=== PATIENT | male | born 1980 | race Two or more races ===

== ENCOUNTER 2018-06-05 09:42 | Inpatient (IN) | payer SELFPAY ==
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
[2018-06-05 10:40] LABS: ABSOLUTE BASOPHILS # (AUTO) 0.1 10^3/uL (0.0-0.2); ABSOLUTE EOSINOPHILS # (AUTO) 0.1 10^3/uL (0.0-0.6); ABSOLUTE LYMPHOCYTES (AUTO) 2.2 10^3/uL (0.5-4.7); ABSOLUTE MONOCYTES (AUTO) 0.6 10^3/uL (0.1-1.4); ABSOLUTE NEUT (AUTO) 10.7 10^3/uL (1.7-8.2); BASOPHILS % (AUTO) 0.8 % (0-2); EOSINOPHILS % (AUTO) 0.9 % (0-6); HEMATOCRIT 44.1 % (37.9-51.0); HEMOGLOBIN 15.1 g/dL (13.5-17.0); LYMPHOCYTES % (AUTO) 15.8 % (13-45); MEAN CORPUSCULAR HEMOGLOBIN 33.5 pg (27.0-33.4); MEAN CORPUSCULAR HGB CONC 34.3 g/dL (32.0-36.0); MEAN CORPUSCULAR VOLUME 98 fl (80-97); MONOCYTES % (AUTO) 4.2 % (3-13); PLATELET COUNT 252 10^3/uL (150-450); RED BLOOD COUNT 4.51 10^6/uL (4.35-5.55); RED CELL DISTRIBUTION WIDTH 13.6 % (11.5-14.0); SEGMENTED NEUTROPHILS % (AUTO) 78.3 % (42-78); TOTAL CELLS COUNTED % (AUTO) 100 %; WHITE BLOOD COUNT 13.6 10^3/uL (4.0-10.5)
[2018-06-05 10:48] LABS: INTERNATIONAL RATION (INR) 1.23; PROTHROMBIN TIME 16.1 SEC (11.4-15.4)
[2018-06-05 11:00] LABS: ALANINE AMINOTRANSFERASE 18 U/L (21-72); ALBUMIN 3.9 g/dL (3.5-5.0); ALKALINE PHOSPHATASE 99 U/L (38-126); ANION GAP 10 (5-19); ASPARTATE AMINO TRANSFERASE 42 U/L (17-59); BILIRUBIN,DIRECT 0.4 mg/dL (0.0-0.4); BILIRUBIN,TOTAL 0.9 mg/dL (0.2-1.3); BLOOD UREA NITROGEN 6 mg/dL (7-20); CALCIUM 8.9 mg/dL (8.4-10.2); CARBON DIOXIDE 25 mmol/L (22-30); CHLORIDE 102 mmol/L (98-107); CREATINE KINASE 116 U/L (55-170); GLUCOSE 136 mg/dL (75-110); POTASSIUM 4.6 mmol/L (3.6-5.0); SODIUM 137.1 mmol/L (137-145); TOTAL PROTEIN 7.9 g/dL (6.3-8.2)
[2018-06-05 11:11] LABS: CREATINE KINASE MB 0.48 ng/mL (<4.55); NT PRO BNP 73 pg/mL (<125)
[2018-06-05 11:13] LABS: TROPONIN I < 0.012 ng/mL
[2018-06-05 11:23] LABS: ARTERIAL BLOOD BASE EXCESS 0.3 mmol/L; ARTERIAL BLOOD H2CO3 1.24 mmol/L (1.05-1.35); ARTERIAL BLOOD HCO3 25.1 mmol/L (20-24); ARTERIAL BLOOD O2 SATURATION 98.8 % (94-98); ARTERIAL BLOOD PCO2 41.1 mmHg (35-45); ARTERIAL BLOOD PO2 143.3 mmHg (80-100); ARTERIAL BLOOD TOTAL CO2 26.4 mmol/L (23-27)
[2018-06-05 11:26] LABS: ARTERIAL BLOOD FIO2 15L
--- NOTE | 2018-06-05 11:34 | EKG REPORT ---
SEVERITY:- ABNORMAL ECG - SINUS TACHYCARDIA JULIANE, CONSIDER BIATRIAL ABNORMALITIES : Confirmed by: Arnoldo Alejandre MD 05-Jun-2018 11:34:13
--- NOTE | 2018-06-05 11:51 | RADIOLOGY REPORT (SQ) ---
EXAM DESCRIPTION: CHEST SINGLE VIEW COMPLETED DATE/TIME: 06/05/2018 11:42 am REASON FOR STUDY: hypoxia, SOB, tachypnea, crackles COMPARISON: None. EXAM PARAMETERS: NUMBER OF VIEWS: One view. TECHNIQUE: Single frontal radiographic view of the chest acquired. RADIATION DOSE: NA LIMITATIONS: Morbid obesity. FINDINGS: LUNGS AND PLEURA: Diffuse perihilar parenchymal opacities. No effusions. MEDIASTINUM AND HILAR STRUCTURES: No masses. Contour normal. HEART AND VASCULAR STRUCTURES: Heart enlarged. BONES: No acute findings. HARDWARE: None in the chest. OTHER: No other significant finding. IMPRESSION: Most likely congestive heart failure and pulmonary edema. TECHNICAL DOCUMENTATION: JOB ID: [id number] [employer]- All Rights Reserved Reading location - IP/workstation name: [email or web address]
[2018-06-05] MEDS ORDERED: FUROSEMIDE INJ/PF 40 MG/4 ML SDV IV ONE (11:56)
--- NOTE | 2018-06-05 12:20 | RADIOLOGY REPORT (SQ) ---
EXAM DESCRIPTION: CTA CHEST COMPLETED DATE/TIME: 06/05/2018 11:45 am REASON FOR STUDY: hypoxia, SOB, tachypnea, crackles COMPARISON: Chest radiographs TECHNIQUE: CT scan of the chest performed using helical scanning technique with dynamic intravenous contrast injection. Images reviewed with lung, soft tissue and bone windows. Reconstructed coronal and sagittal MPR images reviewed. Additional 3 dimensional post-processing performed to develop Maximal Intensity Projection images (MT P). All images stored on PACS. All CT scanners at this facility use dose modulation, iterative reconstruction, and/or weight based d osing when appropriate to reduce radiation dose to as low as reasonably achievable (ALARA). [facility]: Dose Right [facility]: CareDose [facility]: Dose Right [facility]: Teradose 4D [facility]: [employer] CONTRAST TYPE AND DOSE: contrast/concentration: Isovue 350.00 mg/ml; Total Contrast Delivered: 90.0 ml; Total Saline Delivered: 111.0 ml Contrast bolus not optimized for the pulmonary arteries. RENAL FUNCTION: GFR > 60. RADIATION DOSE: CT Rad equipment meets quality standard of care and radiation dose reduction techniq ues were employed. CTDIvol: 54.1 - 70.3 mGy. DLP: 2047 mGy-cm. . LIMITATIONS: Massive obesity. FINDINGS: LUNGS AND PLEURA: Diffuse parenchymal opacities throughout both lungs. Predominantly cent ral. No effusions. AORTA AND GREAT VESSELS: No aneurysm. Contrast bolus not optimized for the aorta. HEART: No pericardial effusion. No significant coronary artery calcifications. PULMONARY ARTERIES: No proximal pulmonary emboli. Suboptimal visualization of the pulmonary arteries . HILAR AND MEDIASTINAL STRUCTURES: No identified masses or abnormal nodes. HARDWARE: None in the chest. UPPER ABDOMEN: No significant findings. Limited exam. THYROID AND OTHER SOFT TISSUES: No masses. No adenopathy. BONES: No acute or significant finding. 3D MIPS: Confirm above findings. OTHER: No other significant finding. IMPRESSION: Diffuse parenchymal opacities throughout the lungs most likely pulmonary edema. Differe ntial includes pneumonia pulmonary hemorrhage. No central pulmonary emboli. COMMENT: Quality ID # [id number]: Final reports with documentation of one or more dose reduction techniques (e.g., Automated exposure control, adjustment of the mA and/or kV according to patient size, use of iterative reconstruction technique) TECHNICAL DOCUMENTATION: JOB ID: [id number] [employer]- All Rights Reserved Reading location - IP/workstation name: [email or web address]
[2018-06-05 13:16] LABS: APPEARANCE,URINE CLEAR; BILIRUBIN,URINE NEGATIVE (NEGATIVE); COLOR,URINE YELLOW; GLUCOSE, URINE NEGATIVE (NEGATIVE); KETONES,URINE NEGATIVE (NEGATIVE); LEUKOCYTE ESTERASE,URINE NEGATIVE (NEGATIVE); NITRITE,URINE NEGATIVE (NEGATIVE); PROTEIN,URINE NEGATIVE (NEGATIVE); URINE SPECIFIC GRAVITY 1.026; UROBILINOGEN,URINE NEGATIVE mg/dL (<2.0)
[2018-06-05] MEDS ORDERED: PIPERACILLIN/TAZOBACTAM 3.375 GM VIAL IV ONE (13:45)
[2018-06-05] MEDS ORDERED: LORAZEPAM INJ 2 MG/1 ML VIAL IV ONE (14:38)
[2018-06-05] MEDS ORDERED: ACETAMINOPHEN 325 MG TABLET PO PRN (16:24)
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
[2018-06-05] MEDS: LEVOFLOXACIN 750 MG/D5W RTU 750 MG/150 ML RTUPB IV SCH (18:57)
[2018-06-06 06:17] LABS: ABSOLUTE BASOPHILS # (AUTO) 0.1 10^3/uL (0.0-0.2); ABSOLUTE LYMPHOCYTES (AUTO) 1.8 10^3/uL (0.5-4.7); ABSOLUTE MONOCYTES (AUTO) 0.7 10^3/uL (0.1-1.4); ABSOLUTE NEUT (AUTO) 9.7 10^3/uL (1.7-8.2); BASOPHILS % (AUTO) 0.6 % (0-2); EOSINOPHILS % (AUTO) 0.4 % (0-6); HEMATOCRIT 43.9 % (37.9-51.0); HEMOGLOBIN 14.7 g/dL (13.5-17.0); LYMPHOCYTES % (AUTO) 14.5 % (13-45); MEAN CORPUSCULAR HEMOGLOBIN 33.1 pg (27.0-33.4); MEAN CORPUSCULAR HGB CONC 33.5 g/dL (32.0-36.0); MEAN CORPUSCULAR VOLUME 99 fl (80-97); MONOCYTES % (AUTO) 5.3 % (3-13); PLATELET COUNT 250 10^3/uL (150-450); RED BLOOD COUNT 4.44 10^6/uL (4.35-5.55); SEGMENTED NEUTROPHILS % (AUTO) 79.2 % (42-78); TOTAL CELLS COUNTED % (AUTO) 100 %; WHITE BLOOD COUNT 12.3 10^3/uL (4.0-10.5)
[2018-06-06 06:52] LABS: ANION GAP 10 (5-19); BLOOD UREA NITROGEN 7 mg/dL (7-20); CALCIUM 9.1 mg/dL (8.4-10.2); CARBON DIOXIDE 29 mmol/L (22-30); CHLORIDE 97 mmol/L (98-107); CHOLESTEROL 171.45 mg/dL (0-200); GLUCOSE 126 mg/dL (75-110); POTASSIUM 4.6 mmol/L (3.6-5.0); SODIUM 136.3 mmol/L (137-145); TRIGLYCERIDES 96 mg/dL (<150)
[2018-06-06 06:55] LABS: ERYTHROCYTE SEDIMENTATION RATE 79 mm/hr (0-15)
[2018-06-06 07:02] LABS: DIRECT LDL 126 mg/dL (<100)
--- NOTE | 2018-06-06 08:39 | RADIOLOGY REPORT (SQ) ---
EXAM DESCRIPTION: CHEST SINGLE VIEW COMPLETED DATE/TIME: 06/06/2018 8:25 am REASON FOR STUDY: Respiratory failure COMPARISON: None. EXAM PARAMETERS: NUMBER OF VIEWS: One view. TECHNIQUE: Single frontal radiographic view of the chest acquired. RADIATION DOSE: NA LIMITATIONS: None. FINDINGS: LUNGS AND PLEURA: No improvement and diffuse airspace type infiltrates within both lungs. The findings could represent pulmonary edema. MEDIASTINUM AND HILAR STRUCTURES: No masses. Contour normal. HEART AND VASCULAR STRUCTURES: The heart remains prominent in size. . BONES: No acute findings. HARDWARE: None in the chest. OTHER: Chest leads in place. IMPRESSION: Bilateral pulmonary airspace type infiltrates consistent with pulmonary edema. TECHNICAL DOCUMENTATION: JOB ID: [id number] [employer]- All Rights Reserved Reading location - IP/workstation name: [email or web address]
[2018-06-06] MEDS ORDERED: FUROSEMIDE INJ/PF 100 MG/10 ML SDV IV ONE (08:56)
[2018-06-06] MEDS ORDERED: METHYLPREDNISOLONE INJ 125 MG/2 ML SDV IV ONE (09:04)
[2018-06-06] MEDS ORDERED: METHYLPREDNISOLONE INJ 125 MG/2 ML SDV ONE (09:13)
[2018-06-06] MEDS ORDERED: FUROSEMIDE INJ/PF 40 MG/4 ML SDV ONE (09:13)
[2018-06-06] MEDS ORDERED: FUROSEMIDE INJ/PF 100 MG/10 ML SDV ONE (09:17)
[2018-06-06] MEDS ORDERED: BUDESONIDE NEB 0.5 MG/2 ML AMPUL NEB ONE ×2 (09:29→11:41)
[2018-06-06] MEDS: DOCUSATE SODIUM 100 MG CAPSULE PO SCH (11:22)
[2018-06-06] MEDS: ENOXAPARIN SODIUM INJ 40 MG/0.4 ML DISP.SYRIN SUBCUT SCH (11:23)
[2018-06-06] MEDS: AZITHROMYCIN 500 MG in DEXTROSE 5%-WATER 250 ML IV SCH (11:26)
[2018-06-06] MEDS: ALBUTEROL SULFATE 0.083% NEB 2.5 MG/3 ML AMPUL NEB PRN (11:43)
[2018-06-06 12:28] LABS: URINE AMPHETAMINES SCREEN NEGATIVE; URINE BARBITURATES SCREEN NEGATIVE; URINE BENZODIAZEPINES SCREEN NEGATIVE; URINE COCAINE SCREEN NEGATIVE; URINE MARIJUANA (THC) SCREEN NEGATIVE; URINE METHADONE SCREEN NEGATIVE; URINE PHENCYCLIDINE SCREEN NEGATIVE
[2018-06-06 14:48] LABS: ARTERIAL BLOOD BASE EXCESS 2.5 mmol/L; ARTERIAL BLOOD FIO2 40%; ARTERIAL BLOOD H2CO3 1.29 mmol/L (1.05-1.35); ARTERIAL BLOOD HCO3 27.4 mmol/L (20-24); ARTERIAL BLOOD O2 SATURATION 94.5 % (94-98); ARTERIAL BLOOD PH 7.42 (7.35-7.45); ARTERIAL BLOOD PO2 70.6 mmHg (80-100); ARTERIAL BLOOD TOTAL CO2 28.7 mmol/L (23-27)
[2018-06-06] MEDS ORDERED: FUROSEMIDE INJ/PF 40 MG/4 ML SDV IV ONE (16:30)
[2018-06-06] MEDS: METHYLPREDNISOLONE INJ 40 MG/1 ML SDV IV SCH ×2 (17:14→22:52)
[2018-06-06] MEDS: FUROSEMIDE INJ/PF 20 MG/2 ML SDV IV SCH ×2 (17:16→22:52)
[2018-06-06] MEDS: LEVOFLOXACIN 750 MG/D5W RTU 750 MG/150 ML RTUPB IV SCH (17:18)
[2018-06-06 21:07] LABS: ANION GAP 7 (5-19); BLOOD UREA NITROGEN 16 mg/dL (7-20); CALCIUM 9.1 mg/dL (8.4-10.2); CARBON DIOXIDE 31 mmol/L (22-30); CHLORIDE 95 mmol/L (98-107); GLUCOSE 262 mg/dL (75-110); POTASSIUM 5.1 mmol/L (3.6-5.0); SODIUM 133.2 mmol/L (137-145)
[2018-06-06] MEDS: BUDESONIDE NEB 0.5 MG/2 ML AMPUL NEB SCH (21:12)
[2018-06-07] MEDS: METHYLPREDNISOLONE INJ 40 MG/1 ML SDV IV SCH (05:27)
[2018-06-07] MEDS: ALBUTEROL SULFATE 0.083% NEB 2.5 MG/3 ML AMPUL NEB PRN (08:31)
[2018-06-07] MEDS: BUDESONIDE NEB 0.5 MG/2 ML AMPUL NEB SCH (08:31)
[2018-06-07] MEDS: ENOXAPARIN SODIUM INJ 40 MG/0.4 ML DISP.SYRIN SUBCUT SCH (10:57)
[2018-06-07] MEDS: AZITHROMYCIN 500 MG in DEXTROSE 5%-WATER 250 ML IV SCH ×2 (10:57→22:20)
[2018-06-07] MEDS: DOCUSATE SODIUM 100 MG CAPSULE PO SCH (10:57)
[2018-06-07] MEDS: FUROSEMIDE INJ/PF 20 MG/2 ML SDV IV SCH (10:57)
--- NOTE | 2018-06-07 16:25 | PDOC PROGRESS REPORT ---
Subjective Progress Note for:: 06/07/18 Subjective:: Sitting in the chair. He does feel better. Breathing is easier. He does report no bowel movement for several days. Reason For Visit: SHORTNESS OF BREATH Physical Exam Vital Signs: Temp Pulse Resp BP Pulse Ox 99.0 F 103 H 22 H 144/81 H 96 06/07/18 15:06 06/07/18 15:06 06/07/18 15:06 06/07/18 15:06 06/07/18 15:06 Intake & Output 06/06/18 06/07/18 06/08/18 06:59 06:59 06:59 Intake Total 150 400 705 Output Total 0 3750 425 Balance 150 -3350 280 Weight 174.7 kg General appearance: PRESENT: no acute distress, cooperative, morbidly obese, well-developed Head exam: PRESENT: atraumatic, normocephalic Neck exam: ABSENT: carotid bruit, lymphadenopathy, tenderness Respiratory exam: PRESENT: rales - Possible faint rales. Difficult to auscultate between BiPAP and body habitus., symmetrical, unlabored. ABSENT: accessory muscle use, rhonchi, wheezes Cardiovascular exam: PRESENT: RRR, +S1, +S2 GI/Abdominal exam: PRESENT: distended - Large protuberant abdomen, normal bowel sounds, soft. ABSENT: tenderness Extremities exam: PRESENT: +2 edema Neurological exam: PRESENT: alert, awake, oriented to person, oriented to place, oriented to time, oriented to situation, CN II-XII grossly intact Psychiatric exam: PRESENT: appropriate affect, normal mood. ABSENT: agitated, anxious Focused psych exam: ABSENT: restlessness Results Laboratory Results: 06/06/18 05:54 06/06/18 20:45 06/06/18 20:45 Sodium 133.2 L Potassium 5.1 H Chloride 95 L Carbon Dioxide 31 H Anion Gap 7 BUN 16 Creatinine 0.56 Est GFR ( Amer) > 60 Est GFR (Non-Af Amer) > 60 Glucose 262 H Calcium 9.1 06/05/18 12:45 Clean Catch Midstream Urine Culture - Final Mixed Urogenital Jacquie 06/05/18 06/05/18 10:17 10:17 Creatine Kinase 116 CK-MB (CK-2) 0.48 Troponin I < 0.012 NT-Pro-B Natriuret Pep 73 Impressions: Chest/Abdomen CTA 06/05/18 10:02 IMPRESSION: Diffuse parenchymal opacities throughout the lungs most likely pulmonary edema. Differential includes pneumonia pulmonary hemorrhage. No central pulmonary emboli. Chest X-Ray 06/06/18 06:00 IMPRESSION: Bilateral pulmonary airspace type infiltrates consistent with pulmonary edema. Assessment & Plan - Diagnosis (1) Acute respiratory failure with hypoxia Is this a current diagnosis for this admission?: Yes Plan: It appears that this is most likely cardiogenic. I have discontinued the antibiotics. I will rapid taper off of the steroids. (2) Congestive heart failure Qualifiers: Heart failure type: unspecified Heart failure chronicity: unspecified Qualified Code(s): I50.9 - Heart failure, unspecified Is this a current diagnosis for this admission?: Yes Plan: Awaiting echocardiogram. This appears to be cardiac related. Further decisions to be made based on echocardiogram results. I did explain to the patient that he is going to be on new medications that he will have to comply with. Weight loss is also an issue. I am going to start him on low-dose metoprolol as well as atorvastatin and Entresto. (3) Morbid obesity Is this a current diagnosis for this admission?: Yes Plan: BMI is 56.9. Will need a weight loss regimen after discharge. - Time Time Spent with patient: 15-24 minutes Medications reviewed and adjusted accordingly: Yes
[2018-06-07] MEDS ORDERED: METHYLPREDNISOLONE INJ 40 MG/1 ML SDV IV SCH (18:00)
--- NOTE | 2018-06-07 18:55 | RADIOLOGY REPORT (SQ) ---
EXAM DESCRIPTION: CHEST SINGLE VIEW COMPLETED DATE/TIME: 06/07/2018 6:47 pm REASON FOR STUDY: SOB COMPARISON: 06/06/2018 EXAM PARAMETERS: NUMBER OF VIEWS: One view. TECHNIQUE: Single frontal radiographic view of the chest acquired. RADIATION DOSE: NA LIMITATIONS: None. FINDINGS: LUNGS AND PLEURA: Improved aeration of the lungs with mild bibasilar opacities persisting. No pneumothorax. MEDIASTINUM AND HILAR STRUCTURES: Stable. HEART AND VASCULAR STRUCTURES: Stable. BONES: No acute findings. HARDWARE: None in the chest. OTHER: No other significant finding. IMPRESSION: Markedly improved aeration of the lungs. Otherwise stable radiographic appearance of th e chest. TECHNICAL DOCUMENTATION: JOB ID: [id number] DAT[employer]- All Rights Reserved Reading location - IP/workstation name: [email or web address]
--- NOTE | 2018-06-07 21:28 | PDOC CONSULTATION ---
Consultation-Blank Consultation: CARDIOLOGY CONSULTATION by Dr. Kisha Riddle on 06/07/2018. Patient seen at 8:30 PM on 06/07/2018. REASON FOR CONSULTATION: Patient with shortness of breath, leg edema and orthopnea for congestive heart failure.
[2018-06-07] MEDS: ATORVASTATIN CALCIUM 20 MG TABLET PO SCH (22:19)
[2018-06-08 07:17] LABS: ANION GAP 6 (5-19); BLOOD UREA NITROGEN 32 mg/dL (7-20); CALCIUM 8.9 mg/dL (8.4-10.2); CARBON DIOXIDE 33 mmol/L (22-30); CHLORIDE 96 mmol/L (98-107); GLUCOSE 157 mg/dL (75-110); POTASSIUM 4.3 mmol/L (3.6-5.0); SODIUM 135.4 mmol/L (137-145)
[2018-06-08] MEDS ORDERED: FUROSEMIDE 40 MG TABLET PO SCH (10:00)
[2018-06-08] MEDS: SACUBITRIL/VALSARTAN 24 MG/26 MG TABLET PO SCH (10:10)
[2018-06-08] MEDS: METOPROLOL SUCCINATE 25 MG TAB.SR.24H PO SCH (10:10)
[2018-06-08] MEDS: METHYLPREDNISOLONE INJ 40 MG/1 ML SDV IV SCH (10:10)
[2018-06-08] MEDS: DOCUSATE SODIUM 100 MG CAPSULE PO SCH (10:10)
[2018-06-08] MEDS: LEVOFLOXACIN 750 MG/D5W RTU 750 MG/150 ML RTUPB IV SCH (10:11)
[2018-06-08] MEDS: ENOXAPARIN SODIUM INJ 40 MG/0.4 ML DISP.SYRIN SUBCUT SCH (10:12)
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
--- NOTE | 2018-06-08 20:39 | XCELERA REPORT ---
[address] [address] Transthoracic Echocardiogram Report Name: HALLEY CRABTREE JR Age: 38 yrs Gender: Male : 1980 Patient Status: Inpatient Patient Location: [address] [place] [address] Study Date: 06/07/2018 09:58 AM Procedure: A two-dimensional transthoracic echocardiogram with color flow and Doppler was performed. Uniterpretable echo due to poor images and doppler interogation. Reason For Study: Cardiomegaly. assess function Ordering Physician: CRISTINA CABRAL Performed By: Ania Neil Interpretation Summary Uniterpretable echo due to poor images and doppler interogation. Probably reduced LVEF , but csnnot assess LVEF.No other interprtation possible.RECOMMEND FIRST PASS MUGA FOR RVEF AND LVEF. Doppler Measurements & Calculations MV E max anai: 73.4 cm/sec MV dec slope: 303.9 cm/sec2 PA V2 max: 114.7 cm/sec MV A max anai: 70.4 cm/sec MV dec time: 0.24 sec PA max P.3 mmHg MV E/A: 1.0 Left Ventricle Probably reduced LVEF , but csnnot assess LVEF.No other interprtation possible.RECOMMEND FIRST PASS MUGA FOR RVEF AND LVEF. : CRISTINA CABRAL > Kisha Riddle
[2018-06-08] MEDS: AZITHROMYCIN 500 MG in DEXTROSE 5%-WATER 250 ML IV SCH (21:46)
[2018-06-08] MEDS: ATORVASTATIN CALCIUM 20 MG TABLET PO SCH (21:46)
--- NOTE | 2018-06-08 22:35 | Progress Note ---
Provider Note Provider Note: CARDIOLOGY PROGRESS NOTES by Dr. Kisha Riddle on 06/08/2000-01-08. SUBJECTIVE: The patient is sitting up in the chair, he says he is unable to lie flat in bed. He appears to be in no acute distress. He says his shortness of breath is much better. He has very minimal cough which is nonproductive. His leg edema is much improved he has no chest pain or discomfort. The patient denies any palpitations. There is no arrhythmias seen on the monitor. There is no TIA CVA symptoms. SUBJECTIVE: The patient is morbidly obese. He is well-groomed. He is in no acute distress. Selected Entries 06/08/18 11:16 Temperature 98.2 F Temperature Axillary Source Pulse Rate 80 Respiratory 20 Rate Blood Pressure 162/87 H Blood Pressure 112 Mean BP Location Left Wrist BP Position Sitting O2 Sat by Pulse 100 Oximetry Oxygen Flow 6.00 Rate Oxygen Delivery Venturi Mask Method HEAD: Is atraumatic normocephalic. EYES: Pupils equal round regular reactive to light accommodation. Extraocular movements are normal. There is no clinical pallor. There is no scleral icterus. ENT: Is negative. NECK: Is supple there is no definite JVD present. Carotids are equal there is no bruit. There is no lymphadenopathy. There is no goiter. There is no accessory muscles of resp iration use. Trachea central. LUNGS: Show diminished air entry and due to the patient's obesity. Lungs show few scattered rhonchi. No wheezing today. There is no chest wall tenderness. S1-S2 is heard there is no S3 gallop there is no S4 gallop there is systolic murmur in the left sternal border and the apex there is no rub. ABDOMEN: Is morbidly obese. There is no definite hepatosplenomegaly AUT[employer] PARKER: Patient is conscious awake alert oriented x3 with no focal deficits. PSYCHIATRIC: The patient judgment and insight are intact his affect is normal. 06/08/18 06/08/18 06:39 11:19 Sodium 135.4 L Potassium 4.3 Chloride 96 L Carbon Dioxide 33 H Anion Gap 6 BUN 32 H Creatinine 0.68 Est GFR (Non-Af Amer) > 60 Glucose 157 H POC Glucose 246 H Calcium 8.9 Magnesium 2.8 H The patient's 24-hour intake is 1380 mL. Output [id number] mL. The patient's echocardiogram is uninterpretable, but there is a suggestion there is LV dysfunction/reduced LV ejection fraction. The patient is morbidly obese and is unable to lie down flat, and hence getting a first-pass MUGA of right ventricle ejection fraction and left ventricular ejection fraction may not be possible. IMPRESSION/RECOMMENDATION: 1.Acute infective bronchitis. Much improved. Continue antibiotics. 2. Congestive heart failure: Continue anti-cardia myopathy medication which is being done at present. 3. Cardiomyopathy: Unable to estimate the patient's ejection fraction accurately. 4. Hypertension: Continue current antihypertensives. 5. Elevated blood sugars:? Secondary to steroids. Would recommend getting hemoglobin A1c, and checking blood sugars off steroids, to see if indeed the patient is a diabetic. 5. Morbid obesity: Later would recommend that the patient as an outpatient undergo arrangement for weight loss. 6. Tobacco abuse disorder: Tobacco cessation counseling given. Spent at least 4 minutes on this. 11 active tobacco he has been explained to the patient. The patient is a full code. His sister is a surrogate healthcare decision maker. Medications reviewed. Management plan discussed with attending physician. Medical decision making is of moderate to high complexity, in view of the exact ejection fraction of the left ventricle being unknown, due to poor image quality on the echo. 40 minutes spent on this patient more than 50% of time spent in d irect patient care.
[2018-06-09] MEDS ORDERED: FUROSEMIDE 40 MG TABLET PO SCH (10:00)
[2018-06-09] MEDS: METOPROLOL SUCCINATE 25 MG TAB.SR.24H PO SCH (10:12)
[2018-06-09] MEDS: METHYLPREDNISOLONE INJ 40 MG/1 ML SDV IV SCH (10:12)
[2018-06-09] MEDS: FUROSEMIDE 20 MG TABLET PO SCH (10:13)
[2018-06-09] MEDS: LEVOFLOXACIN 750 MG/D5W RTU 750 MG/150 ML RTUPB IV SCH (10:13)
[2018-06-09] MEDS: DOCUSATE SODIUM 100 MG CAPSULE PO SCH (10:13)
[2018-06-09] MEDS: ENOXAPARIN SODIUM INJ 40 MG/0.4 ML DISP.SYRIN SUBCUT SCH (10:13)
[2018-06-09] MEDS: SACUBITRIL/VALSARTAN 24 MG/26 MG TABLET PO SCH (10:13)
[2018-06-09 13:40] LABS: ANTINUCLEAR ANTIBODIES Negative (Negative)
--- NOTE | 2018-06-09 16:07 | PDOC PROGRESS REPORT ---
Subjective Progress Note for:: 06/09/18 Subjective:: The patient is off of BiPAP. He is resting comfortably on nasal cannula. Reason For Visit: SHORTNESS OF BREATH Physical Exam Vital Signs: Temp Pulse Resp BP Pulse Ox 99.1 F 88 18 141/76 H 100 06/09/18 11:59 06/09/18 11:59 06/09/18 11:59 06/09/18 11:59 06/09/18 11:59 Intake & Output 06/08/18 06/09/18 06/10/18 06:59 06:59 06:59 Intake Total 1380 994 507 Output Total 1925 2500 400 Balance -545 -1506 107 Weight 174.7 kg General appearance: PRESENT: no acute distress, cooperative Head exam: PRESENT: normocephalic Ear exam: PRESENT: normal external ear exam Respiratory exam: PRESENT: symmetrical, unlabored, wheezes - Faint expiratory wheeze left side. ABSENT: crackles, rales, rhonchi Cardiovascular exam: PRESENT: RRR, +S1, +S2 GI/Abdominal exam: PRESENT: normal bowel sounds, soft. ABSENT: tenderness Extremities exam: PRESENT: +1 edema Neurological exam: PRESENT: alert, awake, oriented to person, oriented to place, oriented to time, oriented to situation, CN II-XII grossly intact Psychiatric exam: PRESENT: appropriate affect, normal mood. ABSENT: agitated, anxious Focused psych exam: ABSENT: restlessness Results Laboratory Results: 06/06/18 05:54 06/08/18 06:39 06/05/18 06/05/18 10:17 10:17 Creatine Kinase 116 CK-MB (CK-2) 0.48 Troponin I < 0.012 NT-Pro-B Natriuret Pep 73 Impressions: Chest/Abdomen CTA 06/05/18 10:02 IMPRESSION: Diffuse parenchymal opacities throughout the lungs most likely pulmonary edema. Differential includes pneumonia pulmonary hemorrhage. No central pulmonary emboli. Chest X-Ray 06/07/18 00:00 IMPRESSION: Markedly improved aeration of the lungs. Otherwise stable radiographic appearance of the chest. Assessment & Plan - Diagnosis (1) Acute respiratory failure with hypoxia Is this a current diagnosis for this admission?: Yes Plan: Infectious etiology. The patient reports that he has had pneumonia in the past. He has been slow to recover then. He is down to nasal cannula. I have asked respiratory therapy to assess pulse oximetry while ambulating. I would like to see if he tolerates room air. (2) Congestive heart failure Qualifiers: Heart failure type: unspecified Heart failure chronicity: unspecified Qualified Code(s): I50.9 - Heart failure, unspecified Is this a current diagnosis for this admission?: Yes Plan: Patient was seen by cardiology. He had an echocardiogram. It was difficult to assess his ejection fraction. Cardiology would like him to remain on a low-dose diuretic as well as Entresto. He will follow-up with cardiology. (3) Morbid obesity Is this a current diagnosis for this admission?: Yes Plan: I told him that he must start a cardiac diet and increase his exercise. Obesity is a significant morbidity for him. I also suggested that he be assessed with a sleep study. (4) Pneumonitis Is this a current diagnosis for this admission?: Yes Plan: Complete steroid taper. (5) Hyperglycemia, drug-induced Is this a current diagnosis for this admission?: Yes Plan: Likely the result of his steroid therapy. I will check hemoglobin A1c. - Time Time Spent with patient: 15-24 minutes Medications reviewed and adjusted accordingly: Yes Anticipated discharge: Home Within: within 48 hours
[2018-06-09] MEDS: ATORVASTATIN CALCIUM 20 MG TABLET PO SCH (21:57)
[2018-06-09] MEDS: AZITHROMYCIN 500 MG in DEXTROSE 5%-WATER 250 ML IV SCH (21:57)
[2018-06-10] MEDS: DOCUSATE SODIUM 100 MG CAPSULE PO SCH (09:31)
[2018-06-10] MEDS: METOPROLOL SUCCINATE 25 MG TAB.SR.24H PO SCH (09:31)
[2018-06-10] MEDS: ENOXAPARIN SODIUM INJ 40 MG/0.4 ML DISP.SYRIN SUBCUT SCH (09:32)
[2018-06-10] MEDS: LEVOFLOXACIN 750 MG/D5W RTU 750 MG/150 ML RTUPB IV SCH (09:32)
[2018-06-10] MEDS: FUROSEMIDE 20 MG TABLET PO SCH (09:32)
[2018-06-10] MEDS: SACUBITRIL/VALSARTAN 24 MG/26 MG TABLET PO SCH (09:32)
--- NOTE | 2018-06-10 20:18 | PDOC PROGRESS REPORT ---
Subjective Progress Note for:: 06/10/18 Subjective:: Sitting up in chair, feels slowly improving. Requiring 6 L of O2 nasal cannula. Was placed on 4 L yesterday, but desaturated. Currently denies chest pain, no fever or chills, still with some Lower extremity edema. Denies nausea or vomiting, no dysuria or polyuria or urinary frequency. Reason For Visit: SHORTNESS OF BREATH Physical Exam Vital Signs: Temp Pulse Resp BP Pulse Ox 98.9 F 91 18 134/67 H 100 06/10/18 15:11 06/10/18 15:11 06/10/18 15:11 06/10/18 15:11 06/10/18 15:11 Intake & Output 06/09/18 06/10/18 06/11/18 06:59 06:59 06:59 Intake Total 994 1764 1620 Output Total 2500 2650 1125 Balance -1506 -526 495 Weight 174.7 kg General appearance: PRESENT: no acute distress, cooperative Head exam: PRESENT: normocephalic Respiratory exam: PRESENT: symmetrical, unlabored, wheezes - Faint expiratory wheezes bilaterally. ABSENT: crackles, rales, rhonchi Cardiovascular exam: PRESENT: RRR, +S1, +S2 GI/Abdominal exam: PRESENT: normal bowel sounds, soft. ABSENT: tenderness Extremities exam: PRESENT: +3 edema Neurological exam: PRESENT: alert, awake, oriented to person, oriented to place, oriented to time, oriented to situation, CN II-XII grossly intact Psychiatric exam: PRESENT: appropriate affect, normal mood. ABSENT: agitated, anxious Focused psych exam: ABSENT: restlessness Results Laboratory Results: 06/06/18 05:54 06/08/18 06:39 06/05/18 12:13 Blood Blood Culture - Final NO GROWTH IN 5 DAYS 06/05/18 10:33 Blood Blood Culture - Final NO GROWTH IN 5 DAYS 06/05/18 06/05/18 10:17 10:17 Creatine Kinase 116 CK-MB (CK-2) 0.48 Troponin I < 0.012 NT-Pro-B Natriuret Pep 73 Impressions: Chest/Abdomen CTA 06/05/18 10:02 IMPRESSION: Diffuse parenchymal opacities throughout the lungs most likely pulmonary edema. Differential includes pneumonia pulmonary hemorrhage. No central pulmonary emboli. Chest X-Ray 06/07/18 00:00 IMPRESSION: Markedly improved aeration of the lungs. Otherwise stable radiographic appearance of the chest. Assessment & Plan - Diagnosis (1) Acute respiratory failure with hypoxia Is this a current diagnosis for this admission?: Yes Plan: Concern for infectious etiology contributory. The patient reported that he has had pneumonia in the past and was slow to recover then. Will continue to taper down oxygen. He is currently on azithromycin and levofloxacin, will discontinue azithromycin. (2) Congestive heart failure Qualifiers: Heart failure type: unspecified Heart failure chronicity: unspecified Qualified Code(s): I50.9 - Heart failure, unspecified Is this a current diagnosis for this admission?: Yes Plan: Patient was seen by cardiology. He had an echocardiogram. It was difficult to assess his ejection fraction. Cardiology would like him to remain on a low-dose diuretic as well as Entresto. He will follow-up with cardiology. (3) Hyperglycemia, drug-induced Is this a current diagnosis for this admission?: Yes Plan: Hemoglobin A1c 7.8. Suspect patient is diabetic. Will start metformin 500 mg twice daily. (4) Pneumonitis Is this a current diagnosis for this admission?: Yes Plan: Appears to have completed a steroid taper. Antibiotics as an acute respiratory failure. (5) Morbid obesity with BMI of 50.0-59.9, adult Is this a current diagnosis for this admission?: Yes Plan: Weight loss counseling.
[2018-06-10] MEDS: ATORVASTATIN CALCIUM 20 MG TABLET PO SCH (21:30)
[2018-06-10] MEDS ORDERED: AZITHROMYCIN 250 MG TABLET PO SCH (22:00)
[2018-06-11 05:51] LABS: ABSOLUTE EOSINOPHILS # (AUTO) 0.3 10^3/uL (0.0-0.6); ABSOLUTE LYMPHOCYTES (AUTO) 2.6 10^3/uL (0.5-4.7); ABSOLUTE MONOCYTES (AUTO) 0.6 10^3/uL (0.1-1.4); ABSOLUTE NEUT (AUTO) 4.3 10^3/uL (1.7-8.2); BASOPHILS % (AUTO) 0.4 % (0-2); EOSINOPHILS % (AUTO) 3.4 % (0-6); HEMATOCRIT 44.2 % (37.9-51.0); HEMOGLOBIN 15.1 g/dL (13.5-17.0); LYMPHOCYTES % (AUTO) 33.2 % (13-45); MEAN CORPUSCULAR HEMOGLOBIN 33.3 pg (27.0-33.4); MEAN CORPUSCULAR HGB CONC 34.3 g/dL (32.0-36.0); MEAN CORPUSCULAR VOLUME 97 fl (80-97); MONOCYTES % (AUTO) 7.8 % (3-13); PLATELET COUNT 249 10^3/uL (150-450); RED BLOOD COUNT 4.55 10^6/uL (4.35-5.55); RED CELL DISTRIBUTION WIDTH 13.1 % (11.5-14.0); SEGMENTED NEUTROPHILS % (AUTO) 55.2 % (42-78); TOTAL CELLS COUNTED % (AUTO) 100 %; WHITE BLOOD COUNT 7.7 10^3/uL (4.0-10.5)
[2018-06-11 06:16] LABS: ANION GAP 6 (5-19); BLOOD UREA NITROGEN 9 mg/dL (7-20); CALCIUM 8.6 mg/dL (8.4-10.2); CARBON DIOXIDE 34 mmol/L (22-30); CHLORIDE 98 mmol/L (98-107); GLUCOSE 167 mg/dL (75-110); POTASSIUM 4.7 mmol/L (3.6-5.0); SODIUM 137.7 mmol/L (137-145)
[2018-06-11] MEDS: SACUBITRIL/VALSARTAN 24 MG/26 MG TABLET PO SCH (09:16)
[2018-06-11] MEDS: LEVOFLOXACIN 750 MG TABLET PO SCH (09:16)
[2018-06-11] MEDS: METOPROLOL SUCCINATE 25 MG TAB.SR.24H PO SCH (09:16)
[2018-06-11] MEDS: DOCUSATE SODIUM 100 MG CAPSULE PO SCH (09:16)
[2018-06-11] MEDS: ENOXAPARIN SODIUM INJ 40 MG/0.4 ML DISP.SYRIN SUBCUT SCH (09:17)
[2018-06-11] MEDS: FUROSEMIDE 20 MG TABLET PO SCH (09:17)
--- NOTE | 2018-06-11 12:31 | PDOC PROGRESS REPORT ---
Subjective Progress Note for:: 06/11/18 Subjective:: Sitting up in chair, feels continuing to slowly improve. Down on 02 to 2 L nasal cannula. Was titrated off, but desaturated to 85% on room air. Currently denies chest pain, no fever or chills, still with some Lower extremity edema. Denies nausea or vomiting, no dysuria or polyuria or urinary frequency. Reason For Visit: SHORTNESS OF BREATH Physical Exam Vital Signs: Temp Pulse Resp BP Pulse Ox 97.6 F 82 14 127/83 H 98 06/11/18 08:11 06/11/18 08:11 06/11/18 08:11 06/11/18 08:11 06/11/18 08:11 Intake & Output 06/10/18 06/11/18 06/12/18 06:59 06:59 06:59 Intake Total 1764 1974 Output Total 2650 1125 Balance -886 849 Weight 174.7 kg General appearance: PRESENT: no acute distress, cooperative Head exam: PRESENT: normocephalic Respiratory exam: PRESENT: symmetrical, unlabored, occasional wheezes - Faint expiratory wheezes bilaterally. ABSENT: crackles, rales, rhonchi Cardiovascular exam: PRESENT: RRR, +S1, +S2 GI/Abdominal exam: PRESENT: normal bowel sounds, soft. ABSENT: tenderness Extremities exam: PRESENT: +3 edema Neurological exam: PRESENT: alert, awake, oriented to person, oriented to place, oriented to time, oriented to situation, CN II-XII grossly intact Psychiatric exam: PRESENT: appropriate affect, normal mood. ABSENT: agitated, anxious Results Laboratory Results: 06/11/18 05:24 06/11/18 05:24 06/11/18 06/11/18 05:24 05:24 WBC 7.7 RBC 4.55 Hgb 15.1 Hct 44.2 MCV 97 MCH 33.3 MCHC 34.3 RDW 13.1 Plt Count 249 Seg Neutrophils % 55.2 Lymphocytes % 33.2 Monocytes % 7.8 Eosinophils % 3.4 Basophils % 0.4 Absolute Neutrophils 4.3 Absolute Lymphocytes 2.6 Absolute Monocytes 0.6 Absolute Eosinophils 0.3 Absolute Basophils 0.0 Sodium 137.7 Potassium 4.7 Chloride 98 Carbon Dioxide 34 H Anion Gap 6 BUN 9 Creatinine 0.48 L Est GFR ( Amer) > 60 Est GFR (Non-Af Amer) > 60 Glucose 167 H Calcium 8.6 06/05/18 12:13 Blood Blood Culture - Final NO GROWTH IN 5 DAYS 06/05/18 10:33 Blood Blood Culture - Final NO GROWTH IN 5 DAYS 06/05/18 06/05/18 10:17 10:17 Creatine Kinase 116 CK-MB (CK-2) 0.48 Troponin I < 0.012 NT-Pro-B Natriuret Pep 73 Impressions: Chest/Abdomen CTA 06/05/18 10:02 IMPRESSION: Diffuse parenchymal opacities throughout the lungs most likely pulmonary edema. Differential includes pneumonia pulmonary hemorrhage. No central pulmonary emboli. Chest X-Ray 06/07/18 00:00 IMPRESSION: Markedly improved aeration of the lungs. Otherwise stable radiographic appearance of the chest. Assessment & Plan - Diagnosis (1) Acute respiratory failure with hypoxia Is this a current diagnosis for this admission?: Yes Plan: Concern for infectious etiology contributory. The patient reported that he has had pneumonia in the past and was slow to recover then. Will continue to taper down oxygen. He is currently on levofloxacin, will continue to complete course. (2) Congestive heart failure Qualifiers: Heart failure type: unspecified Heart failure chronicity: unspecified Qualified Code(s): I50.9 - Heart failure, unspecified Is this a current diagnosis for this admission?: Yes Plan: Patient was seen by cardiology. He had an echocardiogram. It was difficult to assess his ejection fraction. Cardiology would like him to remain on a low-dose diuretic as well as Entresto. I and O's today was about 900 mL. He will follow-up with cardiology at discharge. (3) Hyperglycemia, drug-induced Is this a current diagnosis for this admission?: Yes Plan: Hemoglobin A1c 7.8. Suspect patient is diabetic. Started metformin 500 mg twice daily. (4) Pneumonitis Is this a current diagnosis for this admission?: Yes Plan: Appears to have completed a steroid taper. Antibiotics as in acute respiratory failure. (5) Morbid obesity with BMI of 50.0-59.9, adult Is this a current diagnosis for this admission?: Yes Plan: Continued weight loss counseling.
[2018-06-11] MEDS: METFORMIN HCL 500 MG TABLET PO SCH (15:25)
[2018-06-11] MEDS: ATORVASTATIN CALCIUM 20 MG TABLET PO SCH (22:56)
[2018-06-12] MEDS: METFORMIN HCL 500 MG TABLET PO SCH ×2 (08:36→16:28)
[2018-06-12] MEDS: LEVOFLOXACIN 750 MG TABLET PO SCH (09:21)
[2018-06-12] MEDS: DOCUSATE SODIUM 100 MG CAPSULE PO SCH (09:21)
[2018-06-12] MEDS: METOPROLOL SUCCINATE 25 MG TAB.SR.24H PO SCH (09:22)
[2018-06-12] MEDS: SACUBITRIL/VALSARTAN 24 MG/26 MG TABLET PO SCH (09:23)
[2018-06-12] MEDS: FUROSEMIDE 20 MG TABLET PO SCH (09:23)
[2018-06-12] MEDS: ENOXAPARIN SODIUM INJ 40 MG/0.4 ML DISP.SYRIN SUBCUT SCH (09:23)
--- NOTE | 2018-06-12 11:17 | PDOC PROGRESS REPORT ---
Subjective Progress Note for:: 06/12/18 Subjective:: Sitting up in chair, feels continuing to slowly improve although feels a little more swollen today. Down on --tolerating room air to 2 L nasal cannula. His iron levels showed a net input of 850 mL past 24 hours. Educated on fluid restriction. Currently denies chest pain, no fever or chills. Denies nausea or vomiting, no dysuria or polyuria or urinary frequency. Reason For Visit: SHORTNESS OF BREATH Physical Exam Vital Signs: Temp Pulse Resp BP Pulse Ox 98.2 F 88 20 118/68 99 06/12/18 07:45 06/12/18 07:45 06/12/18 07:45 06/12/18 07:45 06/12/18 07:45 Intake & Output 06/11/18 06/12/18 06/13/18 06:59 06:59 06:59 Intake Total 1974 2442 Output Total 1125 400 Balance 849 2042 Weight 176.5 kg General appearance: PRESENT: no acute distress, cooperative Head exam: PRESENT: normocephalic Respiratory exam: PRESENT: symmetrical, unlabored, rare wheezes - Faint expiratory wheezes bilaterally. ABSENT: crackles, rales, rhonchi Cardiovascular exam: PRESENT: RRR, +S1, +S2 GI/Abdominal exam: PRESENT: normal bowel sounds, soft. ABSENT: tenderness Extremities exam: PRESENT: +3 edema Neurological exam: PRESENT: alert, awake, oriented to person, oriented to place, oriented to time, oriented to situation, CN II-XII grossly intact Psychiatric exam: PRESENT: appropriate affect, normal mood. ABSENT: agitated, anxious Results Laboratory Results: 06/11/18 05:24 06/11/18 05:24 06/05/18 06/05/18 10:17 10:17 Creatine Kinase 116 CK-MB (CK-2) 0.48 Troponin I < 0.012 NT-Pro-B Natriuret Pep 73 Impressions: Chest/Abdomen CTA 06/05/18 10:02 IMPRESSION: Diffuse parenchymal opacities throughout the lungs most likely pulmonary edema. Differential includes pneumonia pulmonary hemorrhage. No central pulmonary emboli. Chest X-Ray 06/07/18 00:00 IMPRESSION: Markedly improved aeration of the lungs. Otherwise stable radiographic appearance of the chest. Assessment & Plan - Diagnosis (1) Acute respiratory failure with hypoxia Is this a current diagnosis for this admission?: Yes Plan: Concern for infectious etiology contributory to respiratory failure. The patient reported that he has had pneumonia in the past and was slow to recover then. Will continue to wean off oxygen as tolerated. He is currently on levofloxacin, will continue to complete course. (2) Congestive heart failure Qualifiers: Heart failure type: unspecified Heart failure chronicity: unspecified Qualified Code(s): I50.9 - Heart failure, unspecified Is this a current diagnosis for this admission?: Yes Plan: Patient was seen by cardiology. He had an echocardiogram. It was difficult to assess his ejection fraction. Cardiology would like him to remain on a low-dose diuretic as well as Entresto. I and O's today was +850 mL. Recommended strict I's of 1.5 L. He is also advised to keep feet elevated and use compression stockings. He will follow-up with cardiology at discharge. (3) Hyperglycemia, drug-induced Is this a current diagnosis for this admission?: Yes Plan: Hemoglobin A1c 7.8. Suspect patient is diabetic. Started metformin 500 mg twice daily and tolerating, will continue. (4) Pneumonitis Is this a current diagnosis for this admission?: Yes Plan: Appears to have completed a steroid taper. Antibiotics as in acute respiratory failure. (5) Morbid obesity with BMI of 50.0-59.9, adult Is this a current diagnosis for this admission?: Yes Plan: Continued weight loss counseling. (6) Diabetes mellitus type 2 in obese Is this a current diagnosis for this admission?: Yes Plan: Hemoglobin A1c 7.8, which makes patient now diabetic. Metformin was started and he is tolerating.
[2018-06-12] MEDS: ATORVASTATIN CALCIUM 20 MG TABLET PO SCH (21:46)
[2018-06-13] MEDS: LEVOFLOXACIN 750 MG TABLET PO SCH (09:38)
[2018-06-13] MEDS: FUROSEMIDE 20 MG TABLET PO SCH (09:38)
[2018-06-13] MEDS: METFORMIN HCL 500 MG TABLET PO SCH ×2 (09:38→17:16)
[2018-06-13] MEDS: METOPROLOL SUCCINATE 25 MG TAB.SR.24H PO SCH (09:38)
[2018-06-13] MEDS: ENOXAPARIN SODIUM INJ 40 MG/0.4 ML DISP.SYRIN SUBCUT SCH (09:39)
[2018-06-13] MEDS: SACUBITRIL/VALSARTAN 24 MG/26 MG TABLET PO SCH (09:39)
[2018-06-13] MEDS: DOCUSATE SODIUM 100 MG CAPSULE PO SCH (09:39)
[2018-06-13 10:05] LABS: ABSOLUTE BASOPHILS # (AUTO) 0.1 10^3/uL (0.0-0.2); ABSOLUTE EOSINOPHILS # (AUTO) 0.3 10^3/uL (0.0-0.6); ABSOLUTE MONOCYTES (AUTO) 0.8 10^3/uL (0.1-1.4); BASOPHILS % (AUTO) 0.9 % (0-2); HEMATOCRIT 44.2 % (37.9-51.0); HEMOGLOBIN 15.1 g/dL (13.5-17.0); LYMPHOCYTES % (AUTO) 29.3 % (13-45); MEAN CORPUSCULAR HEMOGLOBIN 33.4 pg (27.0-33.4); MEAN CORPUSCULAR HGB CONC 34.1 g/dL (32.0-36.0); MEAN CORPUSCULAR VOLUME 98 fl (80-97); MONOCYTES % (AUTO) 7.6 % (3-13); PLATELET COUNT 277 10^3/uL (150-450); RED BLOOD COUNT 4.51 10^6/uL (4.35-5.55); RED CELL DISTRIBUTION WIDTH 13.4 % (11.5-14.0); SEGMENTED NEUTROPHILS % (AUTO) 59.2 % (42-78); TOTAL CELLS COUNTED % (AUTO) 100 %; WHITE BLOOD COUNT 10.1 10^3/uL (4.0-10.5)
[2018-06-13 11:22] LABS: ANION GAP 10 (5-19); BLOOD UREA NITROGEN 9 mg/dL (7-20); CALCIUM 9.4 mg/dL (8.4-10.2); CARBON DIOXIDE 27 mmol/L (22-30); CHLORIDE 98 mmol/L (98-107); GLUCOSE 170 mg/dL (75-110); POTASSIUM 4.9 mmol/L (3.6-5.0); SODIUM 134.6 mmol/L (137-145)
--- NOTE | 2018-06-13 13:56 | PDOC PROGRESS REPORT ---
Subjective Subjective:: feels continuing to slowly improve, lower extremity swelling improving. Down on 02--tolerating room air to 2 L nasal cannula. His I&Os showed a net in again today of 1400 mL in past 24 hours, although of note is that no urine output was measured. Educated patient and his nurse about better measurement of I's and O's. Currently denies chest pain, no fever or chills. Denies nausea or vomiting, no dysuria or polyuria or urinary frequency. Reason For Visit: SHORTNESS OF BREATH Physical Exam Vital Signs: Temp Pulse Resp BP Pulse Ox 97.5 F 105 H 20 131/75 H 98 06/13/18 12:05 06/13/18 12:05 06/13/18 12:05 06/13/18 12:05 06/13/18 12:05 Pulse Oximeter Ambulatory Start: 06/09/18 16:00 Freq: RTDAILY Status: Active Protocol: Document 06/13/18 09:00 [facility] (Rec: 06/13/18 12:05 [facility] [id number]) Exercise Oximetry Treatment Ambulating SpO2 Charge Now No Oxygen Delivery Method Room Air Exercise O2 Saturation by Pulse Oximetry 86 Oximetry Exercise Interval (min) 10 Ambulation Distance (ft) 300 Exercise Tolerance Good Additional RT Notes Other Done by Mahnaz Calix RN Intake & Output 06/12/18 06/13/18 06/14/18 06:59 06:59 06:59 Intake Total 2442 1487 Output Total 400 Balance 2042 1487 Weight 176.5 kg 170.9 kg General appearance: PRESENT: no acute distress, cooperative Head exam: PRESENT: normocephalic Respiratory exam: PRESENT: symmetrical, unlabored, occasional wheezes bilaterally. ABSENT: crackles, rales, rhonchi Cardiovascular exam: PRESENT: RRR, +S1, +S2 GI/Abdominal exam: PRESENT: normal bowel sounds, soft. ABSENT: tenderness Extremities exam: PRESENT: +2 edema Neurological exam: PRESENT: alert, awake, oriented to person, oriented to place, oriented to time, oriented to situation, CN II-XII grossly intact Psychiatric exam: PRESENT: appropriate affect, normal mood. ABSENT: agitated, anxious Results Laboratory Results: 06/13/18 09:09 06/13/18 10:48 06/13/18 06/13/18 06/13/18 09:09 09:09 10:48 WBC 10.1 RBC 4.51 Hgb 15.1 Hct 44.2 MCV 98 H MCH 33.4 MCHC 34.1 RDW 13.4 Plt Count 277 Seg Neutrophils % 59.2 Lymphocytes % 29.3 Monocytes % 7.6 Eosinophils % 3.0 Basophils % 0.9 Absolute Neutrophils 6.0 Absolute Lymphocytes 3.0 Absolute Monocytes 0.8 Absolute Eosinophils 0.3 Absolute Basophils 0.1 Sodium Cancelled 134.6 L Potassium Cancelled 4.9 Chloride Cancelled 98 Carbon Dioxide Cancelled 27 Anion Gap Cancelled 10 BUN Cancelled 9 Creatinine Cancelled 0.39 L Est GFR ( Amer) Cancelled > 60 Est GFR (Non-Af Amer) Cancelled > 60 Glucose Cancelled 170 H Calcium Cancelled 9.4 06/05/18 06/05/18 10:17 10:17 Creatine Kinase 116 CK-MB (CK-2) 0.48 Troponin I < 0.012 NT-Pro-B Natriuret Pep 73 Impressions: Chest/Abdomen CTA 06/05/18 10:02 IMPRESSION: Diffuse parenchymal opacities throughout the lungs most likely pulmonary edema. Differential includes pneumonia pulmonary hemorrhage. No central pulmonary emboli. Chest X-Ray 06/07/18 00:00 IMPRESSION: Markedly improved aeration of the lungs. Otherwise stable radiographic appearance of the chest. Assessment & Plan - Diagnosis (1) Acute respiratory failure with hypoxia Is this a current diagnosis for this admission?: Yes Plan: Concern for infectious etiology contributory to respiratory failure. The patient reported that he has had pneumonia in the past and was slow to recover then. Will continue to wean off oxygen as tolerated--he is hesitant to go home on oxygen but is advised he will likely likely need it. He is currently on levofloxacin, will continue to complete course. (2) Congestive heart failure Qualifiers: Heart failure type: unspecified Heart failure chronicity: unspecified Qualified Code(s): I50.9 - Heart failure, unspecified Is this a current diagnosis for this admission?: Yes (3) Hyperglycemia, drug-induced Is this a current diagnosis for this admission?: Yes Plan: Hemoglobin A1c 7.8. Suspect patient is diabetic. Started metformin 500 mg twice daily and tolerating, will continue. (4) Pneumonitis Is this a current diagnosis for this admission?: Yes Plan: Appears to have completed a steroid taper. Antibiotics as in acute respiratory failure. (5) Morbid obesity with BMI of 50.0-59.9, adult Is this a current diagnosis for this admission?: Yes Plan: Continued weight loss counseling. (6) Diabetes mellitus type 2 in obese Is this a current diagnosis for this admission?: Yes Plan: Hemoglobin A1c 7.8, which makes patient now diabetic. Metformin was started and he is tolerating. Diet and exercise counseling also done.
[2018-06-13] MEDS: ATORVASTATIN CALCIUM 20 MG TABLET PO SCH (22:34)
[2018-06-14] MEDS: METFORMIN HCL 500 MG TABLET PO SCH ×2 (08:32→16:54)
[2018-06-14] MEDS: LEVOFLOXACIN 750 MG TABLET PO SCH (09:57)
[2018-06-14] MEDS: FUROSEMIDE 20 MG TABLET PO SCH (09:57)
[2018-06-14] MEDS: SACUBITRIL/VALSARTAN 24 MG/26 MG TABLET PO SCH (09:57)
[2018-06-14] MEDS: METOPROLOL SUCCINATE 25 MG TAB.SR.24H PO SCH (09:57)
[2018-06-14] MEDS: DOCUSATE SODIUM 100 MG CAPSULE PO SCH (09:57)
[2018-06-14] MEDS: ENOXAPARIN SODIUM INJ 40 MG/0.4 ML DISP.SYRIN SUBCUT SCH (09:58)
[2018-06-14 16:11] VITALS: BP 124/74
--- NOTE | 2018-06-15 23:19 | PDOC DISCHARGE SUMMARY ---
General - Admit/Disc Date/PCP Admission Date/Primary Care Provider: 06/05/18 14:14 Discharge Date: 06/14/18 - Discharge Diagnosis (1) Acute respiratory failure with hypoxia Is this a current diagnosis for this admission?: Yes (2) Congestive heart failure Is this a current diagnosis for this admission?: Yes (3) Hyperglycemia, drug-induced Is this a current diagnosis for this admission?: Yes (4) Pneumonitis Is this a current diagnosis for this admission?: Yes (5) Morbid obesity with BMI of 50.0-59.9, adult Is this a current diagnosis for this admission?: Yes (6) Diabetes mellitus type 2 in obese Is this a current diagnosis for this admission?: Yes - Additional Information Resuscitation Status: Full Code Discharge Diet: Cardiac Discharge Activity: Activity As Tolerated, Balance Activity w/Rest, Weigh Daily Prescriptions: Atorvastatin Calcium [Lipitor 20 mg Tablet] 20 mg PO QHS 30 Days #30 tablet Furosemide [Lasix 20 mg Tablet] 20 mg PO DAILY 30 Days #30 tablet Metformin HCl [Glucophage 500 mg Tablet] 500 mg PO BIDACBS 30 Days #60 tablet Metoprolol Succinate [Toprol Xl 25 mg Tab.sr] 25 mg PO DAILY 30 Days #30 tab.sr.24h Sacubitril/Valsartan [Entresto 24 mg/26 mg Tablet] 1 tab PO DAILY 30 Days #30 tablet Home Medications: Atorvastatin Calcium [Lipitor 20 mg Tablet] 20 mg PO QHS 30 Days #30 tablet 06/14/18 Furosemide [Lasix 20 mg Tablet] 20 mg PO DAILY 30 Days #30 tablet 06/14/18 Metformin HCl [Glucophage 500 mg Tablet] 500 mg PO BIDACBS 30 Days #60 tablet 06/14/18 Metoprolol Succinate [Toprol Xl 25 mg Tab.sr] 25 mg PO DAILY 30 Days #30 tab.sr.24h 06/14/18 Sacubitril/Valsartan [Entresto 24 mg/26 mg Tablet] 1 tab PO DAILY 30 Days #30 tablet 06/14/18 History of Present Illness History of Present Illness: Patient was admitted after presentation as in HPI below: "HALLEY CRABTREE JR is a 38 year old male with limited past medical history. The patient does not follow-up with a primary care provider. He reports that several days ago he began to feel short of breath. He denies fever or chills. He states that once in a while he will cough up clear to light yellow phlegm. He denied any wheezing, chest pain or fever. He has chronic back pain and does not feel that it is related. Because of the worsening shortness of breath he presented to the emergency department. Subsequent evaluation revealed a slightly elevated white blood cell count with mild left shift. There were no other remarkable abnormalities. Chest x-ray showed cardiomegaly with diffuse bilateral perihilar infiltrates. Because of poor oxygenation the patient has been placed on BiPAP better. He has been referred for admission." Hospital Course Hospital Course: Patient was admitted and managed as follows: (1) Acute respiratory failure with hypoxia Is this a current diagnosis for this admission?: Yes Plan: Concern for infectious etiology contributory to respiratory failure. The patient reported that he has had pneumonia in the past and was slow to recover then. Will continue to wean off oxygen as tolerated--he is hesitant to go home on oxygen but is advised he will likely likely need it. He is currently on levofloxacin, will continue to complete course. (2) Congestive heart failure Qualifiers: Heart failure type: unspecified Heart failure chronicity: unspecified Qualified Code(s): I50.9 - Heart failure, unspecified Is this a current diagnosis for this admission?: Yes (3) Hyperglycemia, drug-induced Is this a current diagnosis for this admission?: Yes Plan: Hemoglobin A1c 7.8. Suspect patient is diabetic. Started metformin 500 mg twice daily and tolerating, will continue. (4) Pneumonitis Is this a current diagnosis for this admission?: Yes Plan: Appears to have completed a steroid taper. Antibiotics as in acute respiratory failure. (5) Morbid obesity with BMI of 50.0-59.9, adult Is this a current diagnosis for this admission?: Yes Plan: Continued weight loss counseling. (6) Diabetes mellitus type 2 in obese Is this a current diagnosis for this admission?: Yes Plan: Hemoglobin A1c 7.8, which makes patient now diabetic. Metformin was started and he is tolerating. Diet and exercise counseling also done. O2 sats dropped to 86% on room air with minimal exertion. Patient discharged home O2 2 L nasal cannula continuous. Follow-up with Dr. Riddle of cardiology clinic. Physical Exam Vital Signs: Temp Pulse Resp BP Pulse Ox 98.4 F 108 H 20 124/74 97 06/14/18 15:08 06/14/18 15:08 06/14/18 15:08 06/14/18 15:08 06/14/18 15:08 Pulse Oximeter Ambulatory Start: 06/09/18 16:00 Freq: RTDAILY Status: Active Protocol: Document 06/13/18 09:00 [facility] (Rec: 06/13/18 12:05 [facility] [id number]) Exercise Oximetry Treatment Ambulating SpO2 Charge Now No Oxygen Delivery Method Room Air Exercise O2 Saturation by Pulse Oximetry 86 Oximetry Exercise Interval (min) 10 Ambulation Distance (ft) 300 Exercise Tolerance Good Additional RT Notes Other Done by Mahnaz Calix RN Intake & Output 06/13/18 06/14/18 06/15/18 06:59 06:59 06:59 Intake Total 1487 1212 118 Output Total 8363 743 Balance 1487 -913 -532 Weight 170.9 kg 167.4 kg General appearance: PRESENT: no acute distress, cooperative Head exam: PRESENT: normocephalic Respiratory exam: PRESENT: symmetrical, unlabored, occasional wheezes bilaterally. ABSENT: crackles, rales, rhonchi Cardiovascular exam: PRESENT: RRR, +S1, +S2 GI/Abdominal exam: PRESENT: normal bowel sounds, soft. ABSENT: tenderness Extremities exam: PRESENT: +2 edema Neurological exam: PRESENT: alert, awake, oriented to person, oriented to place, oriented to time, oriented to situation, CN II-XII grossly intact Psychiatric exam: PRESENT: appropriate affect, normal mood. ABSENT: agitated, anxious Results Laboratory Results: 06/13/18 09:09 06/13/18 10:48 06/05/18 06/05/18 10:17 10:17 Creatine Kinase 116 CK-MB (CK-2) 0.48 Troponin I < 0.012 NT-Pro-B Natriuret Pep 73 Impressions: Chest/Abdomen CTA 06/05/18 10:02 IMPRESSION: Diffuse parenchymal opacities throughout the lungs most likely pulmonary edema. Differential includes pneumonia pulmonary hemorrhage. No central pulmonary emboli. Chest X-Ray 06/07/18 00:00 IMPRESSION: Markedly improved aeration of the lungs. Otherwise stable radiographic appearance of the chest.
== END 2018-06-14 17:20 | disposition home or self-care (01) | DRG 189 ==
LOC: ER 09:42 → EH 14:14 → 3S 16:24
PROVIDERS: ADMIT Internal Medicine; ATTEND Internal Medicine
DX: J96.01 Acute respiratory failure with hypoxia (principal); J18.9 Pneumonia, unspecified organism; I42.9 Cardiomyopathy, unspecified; Z68.43 Body mass index [BMI] 50.0-59.9, adult; I50.9 Heart failure, unspecified; I11.0 Hypertensive heart disease with heart failure; E11.65 Type 2 diabetes mellitus with hyperglycemia; E66.01 Morbid (severe) obesity due to excess calories; F12.10 Cannabis abuse, uncomplicated; F17.290 Nicotine dependence, other tobacco product, uncomplicated; Z71.6 Tobacco abuse counseling
CPT/HCPCS: 36415; 36600; 71045; 71275; 80048; 80053; 80061; 80307; 81001; 82550; 82553; 82803; 82962; 83036; 83605; 83735; 83880; 84443; 84484; 85025; 85610; 85652; 86038; 87040; 87086; 93005; 93010; 93306; 94660; 96374; 99291; J0456; J1650; J1940; J1956; J2060; J2543; J2920; J2930; J3490; J7060